=== PATIENT | female | born 1960 | race American Indian/Alaskan Native ===

== ENCOUNTER 2018-09-24 21:27 | Emergency (ER) | payer BC ==
[2018-09-24 22:26] VITALS: BMI 35.8
[2018-09-24 22:28] VITALS: BP 176/97; PULSE 77; RESP 18; TEMP 98.1
--- NOTE | 2018-09-25 00:07 | ED PDOC ---
Arrival/HPI - General Historian: Patient - History of Present Illness Narrative History of Present Illness (Text): 09/24/18 23:55 57 y o female Past medical history hypertension, hypothyroidism, "borderline diabetes", who presents complaining of R eye pain and blurry vision since yesterday. States she woke up this am and also noticed her eyes were bloodshot. Pt states she went to her PCP today and was instructed by her PCP to go straight to the Emergency department. States she has hx of blood clot in R eye 1 year prior, states she gets injections to eye every 5 weeks. Follows with cable repairer in [place], states she did not see that doctor today after onset of symptoms. Admits to photophobia, pain with ocular movement, and pain that surrounds her R eye. Denies headache, dizziness, jaw pain, fever, chills, chest pain, sob, nausea, vomiting, d/c, abd pain, urinary complaints, or other symptoms. Past medical history: hypertension, hypothyroidism, "borderline diabetes" PSurgHx: laser surgery to R eye Allergies: NKDA Meds: Amlodipine 10 mg daily, Synthroid 88 mcg daily; states was on Metformin in past but stopped medication on own due to GI upset Fam hx: denies Soc hx: denies smoking, EtOH, or illicit drug use PMD: Dr. 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 - Endocrine/Metabolic Hx Hypothyroidism: Yes - Psychiatric Hx Substance Use: No - Anesthesia Hx Anesthesia: No <Yonas Dickens - Last Filed: 09/25/18 00:42> - Provider Review Nursing Documentation Reviewed: Yes <Ti Batres - Last Filed: 09/25/18 03:56> Family/Social History Family/Social History: No Known Family HX Smoking Status: Never Smoked Hx Alcohol Use: No Hx Substance Use: No <Yonas Dickens - Last Filed: 09/25/18 00:42> - Physician Review Nursing Documentation Reviewed: Yes <Ti Batres - Last Filed: 09/25/18 03:56> Allergies/Home Meds <Yonas Dickens - Last Filed: 09/25/18 00:42> <Ti Batres - Last Filed: 09/25/18 03:56> Allergies/Adverse Reactions: Allergies No Known Allergies Allergy (Verified 09/24/18 22:25) Home Medications: Home Meds Medication Instructions Recorded Confirmed Amlodipine Besylate [Amlodipine 10 mg PO DAILY 09/24/18 09/24/18 Besilate] Review of Systems - Review of Systems Constitutional: absent: Fevers Eyes: Vision Changes, Photophobia, Eye Pain ENT: absent: Hearing Changes, Tinnitus, Sore Throat, Rhinorrhea, Sinus Congestion Respiratory: Normal Cardiovascular: Normal Gastrointestinal: Normal Musculoskeletal: Normal Skin: Normal <Yonas Dickens - Last Filed: 09/25/18 00:42> - Physician Review All systems were reviewed & negative as marked: Yes <Ti Batres - Last Filed: 09/25/18 03:56> Physical Exam Vital Signs Reviewed: Yes Vital Signs Temp Pulse Resp BP Pulse Ox 09/24/18 22:26 98.1 F 77 18 176/97 H 96 Temperature: Afebrile Blood Pressure: Hypertensive Pulse: Regular Respiratory Rate: Normal Appearance: Positive for: Well-Appearing, Non-Toxic, Uncomfortable Pain Distress: Moderate Mental Status: Positive for: Alert and Oriented X 3 - Systems Exam Head: Present: Atraumatic, Normocephalic Pupils: Present: PERRL (miotic pupil on R side; tonometer pressure reading of R eye 8-10 mm Hg) Extroacular Muscles: Present: EOMI Conjunctiva: Present: Injected Ears: Present: Normal, NORMAL TM, Normal Canal Mouth: Present: Moist Mucous Membranes Pharnyx: Present: Normal. No: ERYTHEMA, EXUDATE Neck: Present: Normal Range of Motion. No: JVD, Lymphadenopathy Respiratory/Chest: Present: Clear to Auscultation, Good Air Exchange. No: Respiratory Distress, Accessory Muscle Use, Wheezes, Rales, Tachypneic Cardiovascular: Present: Regular Rate and Rhythm, Normal S1, S2. No: Murmurs, Rub, Gallop Abdomen: Present: Normal Bowel Sounds. No: Tenderness, Distention, Mass/Organomegaly Upper Extremity: Present: Normal Inspection, Normal ROM, NORMAL PULSES, Capillary Refill < 2s. No: Cyanosis, Edema Lower Extremity: Present: Normal Inspection, NORMAL PULSES, Normal ROM, Capillary Refill < 2 s. No: Edema Neurological: Present: GCS=15, CN II-XII Intact, Speech Normal Skin: Present: Warm, Dry, Normal Color. No: Rashes Psychiatric: Present: Alert, Oriented x 3, Normal Insight, Normal Concentration <Yonas Dickens - Last Filed: 09/25/18 00:42> Vital Signs Temp Pulse Resp BP Pulse Ox 09/24/18 22:26 98.1 F 77 18 176/97 H 96 <Ti Batres - Last Filed: 09/25/18 03:56> Medical Decision Making ED Course and Treatment: 09/25/18 00:[address] Batres at bedside. Tonometer pressure reading of R eye 8-[address] Donis (Ophthalmology carbon electrodes supervisor), who requests that pt come to his office at 10 am on 09/25/18 for further evaluation. Discussed with patient and she is agreeable to plan. Pt to be discharged from Emergency department at this time. To see Dr. Donis today, and to follow with PCP after discharge in 1-2 days. Gave pt script for Tobramycin 0.3% eye drops. <Yonas Dickens - Last Filed: 09/25/18 00:42> ED Course and Treatment: Patient Seen with Provider In agreement with resident note which contains more details about the patient. Patient seen and evaluated with resident. Came up with plan and treatment together. 57 year old female presents complaining of right eye pain and blurry vision since yesterday. Plan: -- Tonometer pressure -- Called sent out to [facility] [facility] carbon electrodes supervisor -- Reassess and disposition <Ti Batres - Last Filed: 09/25/18 03:56> - Scribe Statement The provider has reviewed the documentation as recorded by the Nanette Hayes Provider Scribe Attestation: All medical record entries made by the Amnaibtyra were at my direction and personally dictated by me. I have reviewed the chart and agree that the record accurately reflects my personal performance of the history, physical exam, medical decision making, and the department course for this patient. I have also personally directed, reviewed, and agree with the discharge instructions and d isposition. <Ti Batres - Last Filed: 09/25/18 03:56> Disposition/Present on Arrival - Present on Arrival Any Indicators Present on Arrival: No History of DVT/PE: No History of Uncontrolled Diabetes: No Urinary Catheter: No History of Decub. Ulcer: No History Surgical Site Infection Following: None - Disposition Have Diagnosis and Disposition been Completed?: Yes Disposition Time: 00:14 Patient Plan: Discharge <Yonas Dickens - Last Filed: 09/25/18 00:42> <GiselTi - Last Filed: 09/25/18 03:56> - Disposition Diagnosis: Pain, eye, right, Conjunctivitis Disposition: HOME/ ROUTINE Condition: STABLE Discharge Instructions (ExitCare): Conjunctivitis ([place]) (DC) Additional Instructions: Please follow-up with Ophthalmology (Dr. Donis) for appt today at 10 am in his office. Please follow with your primary care provider within 2-3 days after ER discharge. Please take eye drops as prescribed. Should symptoms recur or worsen, please call your primary care physician or cable repairer, or report to your nearest emergency department. Prescriptions: Tobramycin 0.3% [Tobrex 0.3% Ophth Soln] 1 drop OP Q4H #1 bottle Referrals: Sandra Aponte MD [Primary Care Provider] - Follow up with primary Adi Donis MD [Staff Provider] - Follow up with primary Forms: [employer] ([place]), WORK NOTE
[2018-09-25 01:04] VITALS: O2SAT 98
== END 2018-09-25 01:03 | disposition home or self-care (01) ==
LOC: ED 21:27 → MERGE 21:27 → ED 09-25 01:03
DX: H10.9 Unspecified conjunctivitis (principal); H57.11 Ocular pain, right eye